=== PATIENT | male | born 1965 | race Caucasian/White ===

== ENCOUNTER 2024-10-14 16:35 | Inpatient (IN) | payer OTHER ==
[~2024-10-14] VITALS: Ht 175.3 cm; Wt 81.6 kg
[2024-10-14] MEDS: methylPREDNISolone SOD SUCC 125 MG/2 ML VIAL IV ONE (16:52)
[2024-10-14] MEDS ORDERED: methylPREDNISolone SOD SUCC 125 MG/2 ML VIAL ONE (16:52)
[2024-10-14] MEDS ORDERED: ATOV750O4 PO (16:59)
[2024-10-14] MEDS ORDERED: INSU100I14 SQ (16:59)
[2024-10-14] MEDS ORDERED: PANT40TA49 PO (16:59)
[2024-10-14] MEDS ORDERED: LISI40TA13 PO (17:00)
[2024-10-14] MEDS ORDERED: EMPA25TA PO (17:00)
[2024-10-14] MEDS ORDERED: SPIR25TA6 PO (17:00)
[2024-10-14] MEDS ORDERED: BUSP5TAB3 PO (17:00)
[2024-10-14] MEDS ORDERED: GABA-532 PO (17:00)
[2024-10-14] MEDS ORDERED: AMLO10TA59 PO (17:00)
[2024-10-14] MEDS ORDERED: ONDA-104 PO (17:00)
[2024-10-14] MEDS ORDERED: PRED20TA PO (17:00)
[2024-10-14] MEDS ORDERED: BISO5TAB20 PO (17:00)
[2024-10-14] MEDS ORDERED: EZET10TA15 PO (17:00)
[2024-10-14] MEDS ORDERED: SULF500T46 PO (17:00)
[2024-10-14 17:07] LABS: BASOPHILS # (AUTO) 0.2 K/UL (0.0-0.2); BASOPHILS % (AUTO) 1.3 % (0.0-2.0); EOSINOPHILS % (AUTO) 0.3 % (0.0-7.0); HEMATOCRIT 31.6 % (36.7-47.1); HEMOGLOBIN 9.7 g/dL (12.5-16.3); LYMPHOCYTES # (AUTO) 0.8 K/uL (0.8-4.8); LYMPHOCYTES % (AUTO) 5.6 % (20.5-51.5); MEAN CORPUSCULAR HEMOGLOBIN 22.9 uug (23.8-33.4); MEAN CORPUSCULAR HGB CONC 31 g/dL (32.5-36.3); MEAN CORPUSCULAR VOLUME 74.8 fL (73.0-96.2); MONOCYTES # (AUTO) 1.8 K/uL (0.1-1.30); MONOCYTES % (AUTO) 13.4 % (0.0-11.0); NEUTROPHILS # (AUTO) 10.8 K/uL (1.8-8.9); NEUTROPHILS % (AUTO) 79.4 % (38.5-71.5); PLATELET COUNT (AUTO) 585 K/uL (152-348); RED BLOOD CELL COUNT(AUTO) 4.22 MIL/uL (4.06-5.63); WHITE BLOOD COUNT (AUTO) 13.6 K/uL (3.6-10.2)
[2024-10-14 17:09] LABS: DIFFERENTIAL COMMENT 1
[2024-10-14 17:10] LABS: ABG BASE EXCESS 1.1 mmol/L (-2.0-3.0); ABG HCO3 24.6 mmol/L (21.0-28.0); ABG PCO2 34.6 mmHg (35.0-48.0); ABG PH 7.469 (7.350-7.450); ABG PO2 78.1 mmHg (83.0-108.0); ABG SITE RIGHT RADIAL; ABG TOTAL HEMOGLOBIN 10.3 G/dL (13.5-17.5); AaDO2 96.3 mmHg; COHb 0.7 % (0.5-1.5); MetHb 0.2 % (0.0-1.5); O2Hb 93.8 % (94.0-98.0)
[2024-10-14 17:13] LABS: CALCIUM 8.5 mg/dL (8.5-10.1); CARBON DIOXIDE 25 mmol/L (21-32); CHLORIDE 102 mmol/L (98-107); CREATININE 1.1 mg/dL (0.6-1.3); GLUCOSE 340 mg/dL (74-106); POTASSIUM 4.2 mmol/L (3.5-5.1); SODIUM SERUM 137 mmol/L (136-145); UREA NITROGEN, BLOOD 22 mg/dL (7-18)
[2024-10-14 17:23] LABS: LACTIC ACID 3.1 mmol/L (0.4-2.0)
[2024-10-14 17:28] LABS: ALANINE AMINOTRANSFERASE 22 U/L (16-63); ALBUMIN 2.6 g/dL (3.4-5.0); ALKALINE PHOSPHATASE 225 U/L (50-136); ASPARTATE AMINOTRANSFERASE 16 U/L (15-37); BILIRUBIN,DIRECT 0.2 mg/dL (0.0-0.2); BILIRUBIN,TOTAL 0.5 mg/dL (0.2-1.0); NT-PRO BNP 6301 pg/mL (0-125); TOTAL PROTEIN, SERUM 6.4 g/dL (6.4-8.2)
[2024-10-14] MEDS: IV NORMAL SALINE 1000 ML BAG IV ONE (17:30)
[2024-10-14] MEDS ORDERED: CEFTRIAXONE /D5W 50ML IVPB **ER PYXIS IV ONE (17:41)
[2024-10-14] MEDS ORDERED: AZITHROMYCIN 500MG/ D5W 250ML IVPB **ER PYXIS ONLY IV ONE (17:41)
[2024-10-14] MEDS: CEFTRIAXONE 1 G in IV DEXTROSE 5% 50 ML IV ONE (17:42)
[2024-10-14 17:47] LABS: LYMPHOCYTES % (MANUAL) 8 % (20-40); MONOCYTES % (MANUAL) 11 % (2-10); NEUTROPHILS % (MANUAL) 81 % (42-75); PLATELET ESTIMATE INCREASED
[2024-10-14 17:48] LABS: ANISOCYTOSIS 2+; HYPOCHROMASIA 1+; OVALOCYTES OCC
[2024-10-14] MEDS ORDERED: AZITHROMYCIN 250 MG TABLET ONE (18:09)
[2024-10-14] MEDS: AZITHROMYCIN 250 MG TABLET PO ONE (18:11)
[2024-10-14] MEDS ORDERED: INSULIN REGULAR, HUMAN 1000 UNIT/10 ML VIAL ONE (18:31)
[2024-10-14] MEDS: INSULIN REGULAR, HUMAN 1000 UNIT/10 ML VIAL IV ONE (18:34)
[2024-10-14] MEDS ORDERED: REMEDY ESSENTIAL ZINC PASTE 113 GM TP PRN (23:00)
[2024-10-14] MEDS ORDERED: ONDANSETRON 4 MG/2 ML VIAL IV PRN (23:00)
[2024-10-14] MEDS ORDERED: MAGNESIUM HYDROXIDE 30 ML LIQUID UDC PO PRN (23:00)
[2024-10-14] MEDS ORDERED: DEXTROSE 50% 50 ML DISP.SYRIN IV PRN (23:00)
[2024-10-15] VITALS (11 sets, daily range): BP systolic 139–168; BP diastolic 66–79; TEMP 97.5–99.1; O2SAT 93–99
[2024-10-15] MEDS: methylPREDNISolone SOD SUCC 125 MG/2 ML VIAL IV SCH (01:00)
[2024-10-15] MEDS: IV NS 1000 ML 1,000 ML IV PRN (01:07)
[2024-10-15] MEDS ORDERED: PIPERACILLIN/TAZOBACTAM/D5W 50 ML IV ONE (02:32)
[2024-10-15] MEDS ORDERED: PIPERACILLIN SODIUM/TAZO 3.375 GM VIAL ONE (02:33)
[2024-10-15] MEDS ORDERED: VANCOMYCIN IV 200 ML ONE (02:33)
[2024-10-15] MEDS: PIPERACILLIN SODIUM/TAZOBACTAM 3.375 G in IV DEXTROSE 5% 50 ML IV ONE (02:44)
[2024-10-15] MEDS: VANCOMYCIN IV 1,250 MG in IV DEXTROSE 5% 250 ML IV ONE (03:29)
[2024-10-15] MEDS ORDERED: PIPERACILLIN SODIUM/TAZOBACTAM 4.5 G in IV DEXTROSE 5% 50 ML IV SCH (06:00)
[2024-10-15 06:59] LABS: BASOPHILS # (AUTO) 0.1 K/UL (0.0-0.2); BASOPHILS % (AUTO) 0.6 % (0.0-2.0); EOSINOPHILS % (AUTO) 0.1 % (0.0-7.0); HEMATOCRIT 29.2 % (36.7-47.1); HEMOGLOBIN 9.1 g/dL (12.5-16.3); LYMPHOCYTES # (AUTO) 0.9 K/uL (0.8-4.8); LYMPHOCYTES % (AUTO) 8.2 % (20.5-51.5); MEAN CORPUSCULAR HEMOGLOBIN 23.2 uug (23.8-33.4); MEAN CORPUSCULAR HGB CONC 31 g/dL (32.5-36.3); MONOCYTES # (AUTO) 1.8 K/uL (0.1-1.30); MONOCYTES % (AUTO) 15.6 % (0.0-11.0); NEUTROPHILS # (AUTO) 8.7 K/uL (1.8-8.9); NEUTROPHILS % (AUTO) 75.5 % (38.5-71.5); PLATELET COUNT (AUTO) 466 K/uL (152-348); RED BLOOD CELL COUNT(AUTO) 3.94 MIL/uL (4.06-5.63); RED CELL DISTRIBUTION WIDTH 19.2 % (12.1-16.2); WHITE BLOOD COUNT (AUTO) 11.5 K/uL (3.6-10.2)
[2024-10-15] MEDS: PANTOPRAZOLE SODIUM 40 MG TABLET.DR PO SCH (07:04)
[2024-10-15] MEDS: BLOOD SUGAR DIAGNOSTIC 1 EACH STRIP VI SCH (07:07)
[2024-10-15 07:15] LABS: DIFFERENTIAL COMMENT 1
[2024-10-15 07:20] LABS: CALCIUM 8.4 mg/dL (8.5-10.1); CREATININE 0.9 mg/dL (0.6-1.3); PHOSPHOROUS 4.1 mg/dL (2.5-4.9); POTASSIUM 4.3 mmol/L (3.5-5.1)
[2024-10-15 07:34] LABS: THYROID STIMULATING HORMONE 1.048 mIU/mL (0.358-3.740)
[2024-10-15] MEDS: INSULIN REGULAR, HUMAN 1000 UNIT/10 ML VIAL SQ PRN (08:35)
[2024-10-15] MEDS: ENOXAPARIN SODIUM 40 MG/0.4 ML DISP.SYRIN SQ SCH (08:40)
[2024-10-15 08:51] LABS: LYMPHOCYTES % (MANUAL) 8 % (20-40); MONOCYTES % (MANUAL) 16 % (2-10); NEUTROPHILS % (MANUAL) 76 % (42-75)
[2024-10-15] MEDS ORDERED: SWABABLE VALVE TRANSFER SET EA MC ONE (10:43)
[2024-10-15] MEDS ORDERED: IV NORMAL SALINE 0 ML IV ONE (10:43)
[2024-10-15] MEDS ORDERED: IOHEXOL 350 100 ML INFUS..BTL ONE (10:43)
[2024-10-15] MEDS: PIPERACILLIN SODIUM/TAZOBACTAM 3.375 G in IV DEXTROSE 5% 100 ML IV SCH (14:17)
[2024-10-15] MEDS ORDERED: SULFASALAZINE PO SCH (15:00)
[2024-10-15] MEDS ORDERED: Medication Not On Formulary EA (Bisoprolol Fumarate 5 MG) PO SCH (15:00)
[2024-10-15] MEDS ORDERED: SPIRONOLACTONE 25 MG TABLET PO SCH (15:00)
[2024-10-15] MEDS ORDERED: VANCOMYCIN IV 1,250 MG in IV DEXTROSE 5% 250 ML IV SCH (15:00)
[2024-10-15] MEDS ORDERED: EZETIMIBE 10 MG TABLET PO SCH (15:00)
[2024-10-15] MEDS: VANCOMYCIN IV 1,250 MG in IV DEXTROSE 5% 250 ML IV SCH (15:17)
[2024-10-15] MEDS ORDERED: EMPAGLIFLOZIN 25 MG TABLET PO SCH (16:36)
[2024-10-15] MEDS ORDERED: HYDR50TA68 PO (16:49)
[2024-10-15] MEDS ORDERED: LAMO200T10 PO (16:51)
[2024-10-15] MEDS ORDERED: FLUO20CA42 PO (16:51)
[2024-10-15] MEDS ORDERED: METF-442 PO (16:53)
[2024-10-15] MEDS ORDERED: INSU100V7 SQ (16:54)
[2024-10-15] MEDS ORDERED: CYAN100T44 PO (16:55)
[2024-10-15] MEDS ORDERED: CHOL10005 PO (16:56)
[2024-10-15] MEDS ORDERED: FERR-68 PO (16:56)
[2024-10-15] MEDS ORDERED: ASCO500C18 PO (16:57)
[2024-10-15] MEDS: busPIRone 5 MG TABLET PO SCH (16:57)
[2024-10-15] MEDS ORDERED: MAGN64TA7 PO (16:57)
[2024-10-15] MEDS: AMLODIPINE 10 MG TABLET PO SCH (16:57)
[2024-10-15] MEDS: ATENOLOL 50 MG TABLET PO SCH (16:58)
[2024-10-15] MEDS: LISINOPRIL 20 MG TABLET PO SCH (16:59)
[2024-10-15] MEDS: EZETIMIBE 10 MG TABLET PO SCH (16:59)
[2024-10-15] MEDS: SULFASALAZINE 500 MG TABLET PO SCH (20:49)
[2024-10-15] MEDS: GABAPENTIN 100 MG CAPSULE PO SCH (20:50)
[2024-10-16] VITALS (33 sets, daily range): BP systolic 91–143; BP diastolic 58–99; TEMP 97.5–98.2; O2SAT 83–100
[2024-10-16] MEDS ORDERED: FUROSEMIDE 40 MG/4 ML VIAL IV ONE (08:15)
[2024-10-16] MEDS: FUROSEMIDE 40 MG/4 ML VIAL IV ONE (08:45)
[2024-10-16] MEDS: EMPAGLIFLOZIN 25 MG TABLET PO SCH (08:48)
[2024-10-16] MEDS: methylPREDNISolone SOD SUCC 40 MG/ML VIAL IV SCH (12:00)
[2024-10-16] MEDS: INSULIN GLARGINE,HUM 300 UNITS/3 ML CARTRIDGE SQ SCH (12:45)
[2024-10-16] MEDS: IPRATROPIUM BROMIDE 0.5 MG/2.5 ML NEBU NEB PRN (12:47)
[2024-10-16] MEDS: ALBUTEROL SULFATE 2.5 MG/3 ML NEBU NEB PRN (12:47)
[2024-10-16] MEDS ORDERED: BLOOD SUGAR DIAGNOSTIC 1 EACH STRIP VI SCH (17:15)
[2024-10-16] MEDS ORDERED: INSULIN REGULAR, HUMAN 300 UNITS/3 ML VIAL SQ PRN (17:15)
[2024-10-16] MEDS ORDERED: INSULIN REGULAR, HUMAN 1000 UNIT/10 ML VIAL SQ PRN (17:15)
[2024-10-16] MEDS ORDERED: DEXTROSE 50% 50 ML DISP.SYRIN IV PRN ×2 (17:15→17:30)
[2024-10-16] MEDS: BLOOD SUGAR DIAGNOSTIC 1 EACH STRIP VI SCH (17:28)
[2024-10-16] MEDS: INSULIN REGULAR, HUMAN 1000 UNIT/10 ML VIAL SQ PRN (17:32)
[2024-10-16] MEDS: INSULIN REGULAR, HUMAN 300 UNITS/3 ML VIAL SQ PRN (20:21)
[2024-10-16] MEDS: ACETAMINOPHEN 325 MG TABLET PO PRN (21:49)
[2024-10-17] VITALS: BP 82/53; TEMP 98.7; O2SAT 92
[2024-10-17 01:00] VITALS: BP 86/59; O2SAT 89; O2SAT 91
[2024-10-17] MEDS: ZOLPIDEM 5 MG TABLET PO PRN (01:43)
[2024-10-17 02:00] VITALS: BP 98/66; O2SAT 85
[2024-10-17] MEDS ORDERED: ATROPINE SULFATE 1 MG/10 ML DISP.SYRIN ONE (03:00)
[2024-10-17] MEDS ORDERED: GLUCERNA SHAKE 237 ML CAN PO SCH (09:00)
== END 2024-10-17 07:07 | DRG 871 ==
LOC: ER 16:35 → TELE3 21:18 → CCU 10-16 02:30
PROVIDERS: ATTEND Internal Medicine
PROC: 5A12012 Performance of Cardiac Output, Single, Manual (ICD-10-PCS; principal; 2024-10-17)
PROC: 0BH17EZ Insertion of Endotracheal Airway into Trachea, Via Natural or Artificial Opening (ICD-10-PCS; 2024-10-17)
DX: A41.9 Sepsis, unspecified organism (principal); G92.8 Other toxic encephalopathy; I21.A1 Myocardial infarction type 2; J18.9 Pneumonia, unspecified organism; J96.21 Acute and chronic respiratory failure with hypoxia; J69.0 Pneumonitis due to inhalation of food and vomit; I50.41 Acute combined systolic (congestive) and diastolic (congestive) heart failure; J90 Pleural effusion, not elsewhere classified; D68.59 Other primary thrombophilia; E44.0 Moderate protein-calorie malnutrition; F84.0 Autistic disorder; K50.90 Crohn's disease, unspecified, without complications; C45.7 Mesothelioma of other sites; Z74.09 Other reduced mobility; D75.839 Thrombocytosis, unspecified; Z68.26 Body mass index [BMI] 26.0-26.9, adult; E11.65 Type 2 diabetes mellitus with hyperglycemia; I27.20 Pulmonary hypertension, unspecified; I11.0 Hypertensive heart disease with heart failure; H54.62 Unqualified visual loss, left eye, normal vision right eye; F31.9 Bipolar disorder, unspecified; R65.20 Severe sepsis without septic shock; E78.5 Hyperlipidemia, unspecified; D63.8 Anemia in other chronic diseases classified elsewhere; Z79.84 Long term (current) use of oral hypoglycemic drugs; Z79.4 Long term (current) use of insulin; Z79.899 Other long term (current) drug therapy
CPT/HCPCS: 36415; 36600; 71045; 76604; 83605; 83735; 84100; 84443; 84484; 85025; 85610; 87040; 93005; 93307; 94660; 94664; 99082-TC; A4606; A4663; G0378; J0171; J0456; J0461; J0696; J1650; J1815; J1938; J2543; J2919; J3370; J3590; J7040; J7050; Q0144; Q9967